=== PATIENT | female | born 1970 | race Caucasian/White ===

== ENCOUNTER 2017-07-26 07:52 | Emergency (ER) | payer OTHER ==
[~2017-07-26] VITALS: Ht 170.2 cm; Wt 65.8 kg
[~2017-07-26 07:52] MED LIST: BUPR300T52 PO; DICL50TA9 PO
[2017-07-26] MEDS ORDERED: DEXAMETHASONE SOD PHOSPHATE 4 MG INJ IM ONE (08:15)
--- NOTE | 2017-07-26 08:25 | NUR ---
pt swabbed for rapid strep collection, specimen taken to lab.
[2017-07-26] MEDS ORDERED: DEXAMETHASONE SOD PHOSPHATE 4 MG INJ ONE (08:34)
--- NOTE | 2017-07-26 09:22 | NUR ---
AWAITING TEST RESULTS. PT IS AWAKE AND ALERT WITH NO NEW COMPLAINTS.
--- NOTE | 2017-07-26 10:07 | NUR ---
DC, RX (INCLUDING PRECAUTIONS) GIVEN AND EXPLAINED TO PATIENT WHO STATES SHE UNDERSTANDS ALL INSTRUCTIONS.
== END 2017-07-26 10:10 | disposition home or self-care (01) ==
LOC: ER 07:52
DX: J02.8 Acute pharyngitis due to other specified organisms (principal); B97.89 Other viral agents as the cause of diseases classified elsewhere; Z88.2 Allergy status to sulfonamides; G43.909 Migraine, unspecified, not intractable, without status migrainosus
CPT/HCPCS: 36415; 70360; 86403; 87070; 96372; 99285; A4663; J1100

== ENCOUNTER 2019-05-15 11:26 | Emergency (ER) | payer OTHER ==
[~2019-05-15] VITALS: Ht 170.2 cm; Wt 61.2 kg
--- NOTE | 2019-05-15 11:35 | NUR ---
AOx4, c/o L ear aches, admits to swimming couple weeks ago with recent URI symptoms. Patient also has been using earplugs for sleep 2/2 her spouse's loud snoring, denies trauma to affected site.
--- NOTE | 2019-05-15 11:45 | NUR ---
Patient discharged to home in stable conditon & brisk steady gait. Written and verbal after care instructions given to patient. Patient verbalizes understanding of instructions.
== END 2019-05-15 11:47 | disposition home or self-care (01) ==
LOC: ER 11:26
DX: H66.92 Otitis media, unspecified, left ear (principal); J06.9 Acute upper respiratory infection, unspecified; F32.9 Major depressive disorder, single episode, unspecified; Z88.2 Allergy status to sulfonamides; Z79.899 Other long term (current) drug therapy
CPT/HCPCS: A4663

== ENCOUNTER 2020-08-28 02:56 | Emergency (ER) | payer OTHER ==
[~2020-08-28] VITALS: Ht 170.2 cm; Wt 75.7 kg
--- NOTE | 2020-08-28 03:13 | NUR ---
at bedside for assessment
[2020-08-28] MEDS ORDERED: diphenhydrAMINE 50 MG/1 ML VIAL IV ONE (03:15)
[2020-08-28] MEDS ORDERED: ONDANSETRON 4 MG/2 ML VIAL IV ONE (03:15)
[2020-08-28] MEDS ORDERED: MORPHINE SULFATE 4 MG/1 ML DISP.SYRIN IV ONE (03:15)
[2020-08-28] MEDS ORDERED: MORPHINE SULFATE 4 MG/1 ML DISP.SYRIN ONE (03:20)
[2020-08-28] MEDS ORDERED: ONDANSETRON 4 MG/2 ML VIAL ONE (03:20)
[2020-08-28] MEDS ORDERED: diphenhydrAMINE 50 MG/1 ML VIAL ONE (03:20)
[2020-08-28 03:21] LABS: *BILIRUBIN,URIN NEGATIVE (NEGATIVE); *CLARITY,URINE CLEAR (CLEAR); *COLOR,URINE YELLOW (YELLOW); *KETONES,URINE NEGATIVE (NEGATIVE); *UROBILINOGEN,URINE 0.2 E.U./dl (NORMAL); LEUKOCYTE ESTERASE ,URINE NEGATIVE (NEGATIVE); NITRITE, URINE NEGATIVE (NEGATIVE); UGLUCOSE NEGATIVE (NEGATIVE)
[2020-08-28] MEDS ORDERED: MORPHINE SULFATE 2 MG/1 ML DISP.SYRIN ONE (03:21)
[2020-08-28 03:22] LABS: *BLOOD, URINE NEGATIVE (NEGATIVE)
[2020-08-28] MEDS ORDERED: BUPR-52 PO (03:22)
[2020-08-28] MEDS ORDERED: DOCU100C36 PO (03:22)
[2020-08-28] MEDS ORDERED: EXEN2PEN SQ (03:22)
[2020-08-28] MEDS ORDERED: ALBU6.7H9 INH (03:22)
[2020-08-28] MEDS ORDERED: GABA300C PO (03:22)
[2020-08-28 03:23] LABS: *URINE HCG, QUAL NEGATIVE (NEGATIVE)
[2020-08-28] MEDS ORDERED: LORA-259 PO (03:23)
[2020-08-28] MEDS ORDERED: KETO10TA2 PO (03:23)
[2020-08-28] MEDS ORDERED: METH-406 PO (03:23)
[2020-08-28] MEDS ORDERED: ONDA4TAB11 PO (03:23)
[2020-08-28] MEDS ORDERED: LIDO30CR TP (03:23)
[2020-08-28] MEDS ORDERED: LEVO500T90 PO (03:23)
[2020-08-28] MEDS ORDERED: OXYC5TAB3 PO (03:23)
[2020-08-28] MEDS ORDERED: NORE1TAB93 PO (03:23)
[2020-08-28 03:44] LABS: BASOPHILS % (AUTO) 0.6 % (0.0-2.0); EOSINOPHILS # (AUTO) 0.2 K/uL (0.0-0.7); EOSINOPHILS % (AUTO) 2.5 % (0.0-7.0); HEMOGLOBIN 12.7 g/dL (10.9-14.3); LYMPHOCYTES # (AUTO) 1.6 K/uL (20.0-40.0); MEAN CORPUSCULAR HGB CONC 33 g/dL (32.3-35.6); MEAN CORPUSCULAR VOLUME 89.8 fL (75.5-95.3); MONOCYTES # (AUTO) 0.6 K/uL (2.0-10.0); MONOCYTES % (AUTO) 8.3 % (0.0-11.0); NEUTROPHILS # (AUTO) 4.9 K/uL (1.8-8.9); NEUTROPHILS % (AUTO) 66.6 % (38.5-71.5); PLATELET COUNT (AUTO) 377 K/uL (179-408); RED BLOOD CELL COUNT(AUTO) 4.23 MIL/uL (3.63-4.92); WHITE BLOOD COUNT (AUTO) 7.4 K/uL (3.8-11.8)
[2020-08-28 03:45] LABS: CREATININE 0.6 mg/dL (0.6-1.3); POTASSIUM 4.1 mmol/L (3.5-5.1)
[2020-08-28 03:52] LABS: BILIRUBIN,TOTAL 0.2 mg/dL (0.2-1.0)
[2020-08-28 03:53] LABS: BILIRUBIN,DIRECT 0.1 mg/dL (0.0-0.2); TOTAL PROTEIN, SERUM 6.9 g/dL (6.4-8.2)
[2020-08-28] MEDS ORDERED: SWABABLE VALVE TRANSFER SET EA MC ONE (04:23)
[2020-08-28] MEDS ORDERED: IV NORMAL SALINE 250 ML IV ONE (04:23)
[2020-08-28] MEDS ORDERED: IOHEXOL 300MG/ML 100 ML INFUS..BTL ONE (04:23)
--- NOTE | 2020-08-28 06:50 | NUR ---
Patient discharged to home in stable condition. No signs of acute distress noted. Rx given Written and verbal after care instructions given. Patient verbalizes understanding of instructions. Stressed follow up or return to ER for worsening s/s.
[2020-08-28 06:52] VITALS: BP 118/72
== END 2020-08-28 06:50 | disposition home or self-care (01) ==
LOC: ER 03:00
DX: R10.11 Right upper quadrant pain (principal); F32.9 Major depressive disorder, single episode, unspecified; Z79.899 Other long term (current) drug therapy; C78.7 Secondary malignant neoplasm of liver and intrahepatic bile duct; Z85.038 Personal history of other malignant neoplasm of large intestine; G43.909 Migraine, unspecified, not intractable, without status migrainosus
CPT/HCPCS: 36415; 74177; 80048; 80076; 81003; 83690; 84703; 85025; 85610; 96374; 96375; 99285; J1200; J2270 ×2; J2405; Q9967; A4663; J7030; J7050

== ENCOUNTER 2021-06-07 15:26 | Emergency (ER) | payer OTHER ==
[~2021-06-07] VITALS: Ht 170.2 cm; Wt 71.7 kg
[~2021-06-07 15:26] MED LIST changes: +ALBU6.7H9 INH; +BUPR-53 PO; -BUPR300T52 PO; -DICL50TA9 PO; +DOCU100C36 PO; +EXEN2PEN SQ; +GABA300C PO; +KETO10TA2 PO; +LEVO500T90 PO; +LIDO30CR TP; +LORA-259 PO; +METH-406 PO; +NORE1TAB93 PO; +ONDA4TAB11 PO; +OXYC5TAB3 PO
[2021-06-07 16:47] LABS: HEMATOCRIT 42.7 % (31.2-41.9); MEAN CORPUSCULAR HEMOGLOBIN 31.9 uug (24.7-32.8); MEAN CORPUSCULAR VOLUME 94.7 fL (75.5-95.3); PLATELET COUNT (AUTO) 324 K/uL (179-408)
[2021-06-07 16:52] LABS: CARBON DIOXIDE 26 mmol/L (21-32); CHLORIDE 102 mmol/L (98-107); CREATININE 0.7 mg/dL (0.6-1.3); GLUCOSE 98 mg/dL (74-106); POTASSIUM 3.8 mmol/L (3.5-5.1); UREA NITROGEN, BLOOD 10 mg/dL (7-18)
[2021-06-07 16:58] LABS: ALANINE AMINOTRANSFERASE 31 U/L (14-59); ALKALINE PHOSPHATASE 89 U/L (50-136); ASPARTATE AMINOTRANSFERASE 24 U/L (15-37); BILIRUBIN,DIRECT 0.1 mg/dL (0.0-0.2); BILIRUBIN,TOTAL 0.5 mg/dL (0.2-1.0); LIPASE 85 U/L (73-393); TOTAL PROTEIN, SERUM 6.6 g/dL (6.4-8.2)
[2021-06-07] MEDS: MORPHINE SULFATE 2 MG/1 ML DISP.SYRIN IV ONE (17:00)
[2021-06-07] MEDS: ONDANSETRON 4 MG/2 ML VIAL IV ONE (17:00)
[2021-06-07] MEDS: IV NORMAL SALINE 1000 ML BAG IV ONE (17:30)
[2021-06-07] MEDS ORDERED: SWABABLE VALVE TRANSFER SET EA MC ONE (17:57)
[2021-06-07] MEDS ORDERED: IOHEXOL 300MG/ML 100 ML INFUS..BTL ONE (17:57)
[2021-06-07] MEDS ORDERED: IV NORMAL SALINE 250 ML IV ONE (17:57)
--- NOTE | 2021-06-07 19:20 | NUR ---
RECEIVED REPORT FROM JAE ARTEAGA. PT NOTED TO BE IN BED, DENIES ANY PAIN OR DISCOMFORT, AT BEDSIDE.
--- NOTE | 2021-06-07 20:48 | NUR ---
Patient discharged to home in stable condition. A/O x4, denies pain, no n/v/d. Written and verbal after care instructions given. Patient verbalizes understanding of instructions. Stressed follow up or return to ER for worsening s/s. Accompanied by .
[2021-06-07 20:59] VITALS: BP 110/62
== END 2021-06-07 20:50 | disposition home or self-care (01) ==
LOC: ER 15:26
DX: R10.84 Generalized abdominal pain (principal); C79.9 Secondary malignant neoplasm of unspecified site; Z90.49 Acquired absence of other specified parts of digestive tract; Z85.038 Personal history of other malignant neoplasm of large intestine; Z88.2 Allergy status to sulfonamides; Z79.899 Other long term (current) drug therapy
CPT/HCPCS: 74176; 74177; 80048; 80076; 83690; 84702; 85025; 99285; Q9967; 36415; A4663; J7050

== ENCOUNTER 2021-10-02 09:26 | Emergency (ER) | payer OTHER ==
[~2021-10-02] VITALS: Ht 170.2 cm; Wt 71.7 kg
[2021-10-02] MEDS ORDERED: IOHEXOL 350 100 ML INFUS..BTL ONE (09:58)
[2021-10-02] MEDS ORDERED: IV NORMAL SALINE 250 ML IV ONE (09:58)
[2021-10-02] MEDS ORDERED: SWABABLE VALVE TRANSFER SET EA MC ONE (09:58)
[2021-10-02 09:59] LABS: HEMATOCRIT 42.7 % (31.2-41.9); MEAN CORPUSCULAR HEMOGLOBIN 28.9 uug (24.7-32.8); MEAN CORPUSCULAR VOLUME 86.3 fL (75.5-95.3); PLATELET COUNT (AUTO) 246 K/uL (179-408)
[2021-10-02] MEDS ORDERED: BUPR150T5 PO (10:03)
[2021-10-02 10:05] LABS: CREATININE 0.7 mg/dL (0.6-1.3)
[2021-10-02 10:11] LABS: BILIRUBIN,DIRECT 0.2 mg/dL (0.0-0.2); BILIRUBIN,TOTAL 0.6 mg/dL (0.2-1.0); TOTAL PROTEIN, SERUM 7.2 g/dL (6.4-8.2)
[2021-10-02 11:26] LABS: *BILIRUBIN,URIN NEGATIVE (NEGATIVE); *BLOOD, URINE TRACE (NEGATIVE); *CLARITY,URINE CLOUDY (CLEAR); *COLOR,URINE YELLOW (YELLOW); *KETONES,URINE NEGATIVE (NEGATIVE); *UROBILINOGEN,URINE 0.2 E.U./dl (NORMAL); LEUKOCYTE ESTERASE ,URINE NEGATIVE (NEGATIVE); NITRITE, URINE NEGATIVE (NEGATIVE); PH,URINE 7.5 (5.0-8.0); UGLUCOSE NEGATIVE (NEGATIVE)
[2021-10-02 12:42] VITALS: BP 129/77
--- NOTE | 2021-10-02 12:42 | NUR ---
Patient discharged to home in stable condition. Written and verbal after care instructions given. Patient verbalizes understanding of instructions. Stressed follow up or return to ER for worsening s/s.
[2021-10-02 15:37] LABS: BACTERIA,URINE NONE SEEN /HPF (NONE SEEN); RBC,URINE 0-3 /HPF (0-3); SQUAMOUS EPITHELIAL CELL,UR NONE SEEN /HPF (NONE SEEN); URINE AMORPHOUS PHOSPHATES MODERATE /HPF; WBC,URINE 0-3 /HPF (0-3)
== END 2021-10-02 12:43 | disposition home or self-care (01) ==
LOC: ER 09:26
DX: R10.10 Upper abdominal pain, unspecified (principal); Z85.038 Personal history of other malignant neoplasm of large intestine; Z92.21 Personal history of antineoplastic chemotherapy; Z90.49 Acquired absence of other specified parts of digestive tract; Z88.2 Allergy status to sulfonamides; K76.9 Liver disease, unspecified
CPT/HCPCS: 36415; 71275; 74177; 80048; 80076; 81001; 83605; 83690; 85025; 87040 ×2; 99285; Q9967; A4663; J7050

== ENCOUNTER 2022-06-29 18:02 | Inpatient (IN) | payer OTHER ==
[~2022-06-29] VITALS: Ht 170.2 cm; Wt 74.8 kg
[~2022-06-29 18:02] MED LIST changes: -ALBU6.7H9 INH; -BUPR-53 PO; +BUPR150T5 PO; -EXEN2PEN SQ; -KETO10TA2 PO; -LEVO500T90 PO; -LIDO30CR TP; -LORA-259 PO; -METH-406 PO; -NORE1TAB93 PO; -ONDA4TAB11 PO; -OXYC5TAB3 PO
[2022-06-29] MEDS ORDERED: ONDANSETRON 4 MG/2 ML VIAL IV ONE ×2 (19:15→23:30)
[2022-06-29] MEDS ORDERED: IV NORMAL SALINE 1000 ML BAG IV ONE (19:15)
[2022-06-29] MEDS ORDERED: HYDROMORPHONE 1 MG/1 ML DISP.SYRIN IV ONE ×3 (19:15→23:30)
[2022-06-29] MEDS ORDERED: ONDANSETRON 4 MG/2 ML VIAL ONE ×2 (19:31→23:49)
[2022-06-29] MEDS ORDERED: HYDROMORPHONE 1 MG/1 ML DISP.SYRIN ONE ×3 (19:31→23:49)
[2022-06-29 19:32] LABS: HEMATOCRIT 41.3 % (31.2-41.9); MEAN CORPUSCULAR HEMOGLOBIN 30.6 uug (24.7-32.8); MEAN CORPUSCULAR VOLUME 90.9 fL (75.5-95.3); PLATELET COUNT (AUTO) 279 K/uL (179-408)
--- NOTE | 2022-06-29 19:47 | NUR ---
Patient presents to the ER, C/O abdominal pain/nausea. Patient A/O X 4, seen by the MD #[id number] angio-cath to (LT) AC, blood collected and sent. Patient medicated as per MD orders (see eMAR). Patient transported safely via stretcher to CT. Verbal report given to Foster ROWE.
[2022-06-29 19:48] LABS: BILIRUBIN,DIRECT 0.2 mg/dL (0.0-0.2); BILIRUBIN,TOTAL 0.7 mg/dL (0.2-1.0); CREATININE 0.6 mg/dL (0.6-1.3); POTASSIUM 3.7 mmol/L (3.5-5.1); TOTAL PROTEIN, SERUM 7.1 g/dL (6.4-8.2)
[2022-06-29] MEDS ORDERED: MIRALAX 17 GM POWD.PACK PO ONE (21:30)
[2022-06-29] MEDS ORDERED: MAGNESIUM CITRATE 296 ML BOTTLE PO ONE (21:30)
[2022-06-29] MEDS ORDERED: MIRALAX 17 GM POWD.PACK ONE (22:19)
[2022-06-29] MEDS ORDERED: MINERAL OIL FLEET ENEMA 133 ML BOTTLE RC ONE ×2 (22:23→22:30)
[2022-06-29] MEDS ORDERED: SENNOSIDES 1 TABLET PO ONE (23:30)
[2022-06-30] MEDS ORDERED: ZOLP10TA2 PO (00:24)
[2022-06-30] MEDS ORDERED: MORP15TA PO (00:24)
[2022-06-30] MEDS ORDERED: BUPR300T52 PO (00:24)
[2022-06-30] MEDS ORDERED: APIX5TAB PO (00:24)
[2022-06-30] MEDS ORDERED: LORA-258 PO (00:24)
[2022-06-30] MEDS ORDERED: MORP30TA PO (00:24)
--- NOTE | 2022-06-30 02:04 | NUR ---
Dr. Bishop on panel call with Orlando Cantu NP.
[2022-06-30] MEDS ORDERED: SENNOSIDES 1 TABLET PO PRN (02:45)
[2022-06-30] MEDS ORDERED: ZOLPIDEM 5 MG TABLET PO PRN ×2 (02:45→03:00)
[2022-06-30] MEDS ORDERED: MAGNESIUM HYDROXIDE 30 ML LIQUID UDC PO PRN (02:45)
[2022-06-30] MEDS ORDERED: MORPHINE SULFATE 2 MG/1 ML DISP.SYRIN IV PRN ×2 (02:45→18:45)
[2022-06-30] MEDS ORDERED: LACTULOSE 20 G/30 ML LIQUID UDC PO PRN (02:45)
[2022-06-30] MEDS ORDERED: REMEDY ESSENTIAL ZINC PASTE 113 GM TP PRN (02:45)
[2022-06-30] MEDS ORDERED: FLEET ENEMA 133 ML BOTTLE RC PRN ×2 (02:45→06:46)
[2022-06-30] MEDS ORDERED: DOCUSATE SODIUM 100 MG CAPSULE PO PRN (02:45)
[2022-06-30] MEDS ORDERED: IV NS 1000 ML 1,000 ML IV PRN (02:45)
[2022-06-30] MEDS ORDERED: ACETAMINOPHEN 325 MG TABLET PO PRN (02:45)
--- NOTE | 2022-06-30 03:20 | NUR ---
Received patient from ER via gurney, awake alert and oriented x4, in no acute distress. IV access to Lt AC # 20 intact and patent. Routine admission care rendered, oriented to room, TV, BR and call light. Care plan initiated. Call light placed within easy reach.
[2022-06-30 03:40] VITALS: BP 132/74
[2022-06-30] MEDS: HYDROMORPHONE 1 MG/1 ML DISP.SYRIN IV PRN ×2 (04:58→14:15)
[2022-06-30] MEDS: ONDANSETRON 4 MG/2 ML VIAL IV PRN (05:03)
[2022-06-30 07:44] LABS: HEMATOCRIT 38.8 % (31.2-41.9); MEAN CORPUSCULAR HEMOGLOBIN 31.5 uug (24.7-32.8); MEAN CORPUSCULAR VOLUME 91.1 fL (75.5-95.3); PLATELET COUNT (AUTO) 254 K/uL (179-408)
[2022-06-30] MEDS: PANTOPRAZOLE SODIUM 40 MG VIAL IV SCH (08:11)
[2022-06-30 08:13] LABS: CREATININE 0.7 mg/dL (0.6-1.3); MAGNESIUM 1.9 mg/dL (1.8-2.4); PHOSPHOROUS 3.5 mg/dL (2.5-4.9); POTASSIUM 3.5 mmol/L (3.5-5.1)
[2022-06-30] MEDS: buPROPion XL 150 MG TAB.SR.24H PO SCH (08:16)
[2022-06-30] MEDS: GABAPENTIN 300 MG CAPSULE PO SCH ×2 (08:16→16:05)
[2022-06-30] MEDS: APIXABAN 5 MG TABLET PO SCH ×2 (08:17→20:37)
[2022-06-30 11:58] VITALS: BP 132/77
[2022-06-30 16:36] VITALS: BP 120/69
[2022-06-30] MEDS: METRONIDAZOLE 500 MG/NS 100ML 500 MG in PREMIXED 1 EACH IV SCH ×2 (16:46→16:50)
[2022-06-30] MEDS: CIPROFLOXACIN IV 400 MG in PREMIXED 1 EACH IV SCH (17:24)
[2022-06-30] MEDS ORDERED: LORAZEPAM 0.5 MG TABLET PO PRN (18:45)
[2022-06-30] MEDS ORDERED: MORPHINE SULFATE 4 MG/1 ML DISP.SYRIN IV PRN (18:45)
[2022-06-30] MEDS: MORPHINE SULFATE IR 30 MG TABLET PO PRN ×2 (18:51→18:52)
[2022-06-30] MEDS: MORPHINE SULFATE SR 15 MG TABLET.SA PO SCH (18:54)
[2022-06-30 20:22] VITALS: BP 131/72
[2022-06-30] MEDS: DOCUSATE SODIUM 100 MG CAPSULE PO SCH (20:33)
[2022-06-30] MEDS ORDERED: CIPROFLOXACIN IV 200 MG in PREMIXED 1 EACH IV SCH (21:00)
--- NOTE | 2022-07-01 00:49 | NUR ---
In no acute distress. No signs or symptoms of pain or SOB. No adverse reaction noted from IV antibiotic. Nursing needs anticipated and met. Safety measure maintained.
[2022-07-01 04:22] VITALS: BP 126/78
[2022-07-01] MEDS: CIPROFLOXACIN IV 400 MG in PREMIXED 1 EACH IV SCH ×2 (05:05→17:14)
--- NOTE | 2022-07-01 06:53 | NUR ---
IV IN LFA BECAME INFILTRATED. APPLIED A WARM COMPRESS TO SITE AND SWITCHED IV SITE TO RIGHT HAND 20G. SITE PATENT AND INTACT. NO SWELLING OR REDNESS NOTED AT THIS TIME. WILL CONTINUE TO MONITOR.
[2022-07-01 07:09] LABS: MEAN CORPUSCULAR HEMOGLOBIN 31.3 uug (24.7-32.8); MEAN CORPUSCULAR VOLUME 91.1 fL (75.5-95.3); PLATELET COUNT (AUTO) 228 K/uL (179-408)
[2022-07-01 07:43] LABS: CREATININE 0.6 mg/dL (0.6-1.3); PHOSPHOROUS 2.8 mg/dL (2.5-4.9); POTASSIUM 3.6 mmol/L (3.5-5.1)
[2022-07-01] MEDS: MORPHINE SULFATE SR 15 MG TABLET.SA PO SCH ×2 (08:56→21:15)
[2022-07-01] MEDS: buPROPion XL 150 MG TAB.SR.24H PO SCH (08:56)
[2022-07-01] MEDS: APIXABAN 5 MG TABLET PO SCH ×2 (09:01→21:17)
[2022-07-01] MEDS: GABAPENTIN 300 MG CAPSULE PO SCH ×2 (09:05→16:46)
[2022-07-01] MEDS: PANTOPRAZOLE SODIUM 40 MG VIAL IV SCH (09:17)
[2022-07-01] MEDS: HYDROMORPHONE 1 MG/1 ML DISP.SYRIN IV PRN (10:33)
[2022-07-01 12:00] VITALS: BP 109/66
[2022-07-01 16:00] VITALS: BP 108/71
--- NOTE | 2022-07-01 18:05 | NUR ---
Patient is comfortable. She is alert and oriented x4, verbally responsive. Breathing normal on room air with apparent distress noted. Chief complaint is abdominal pain. She is able to walk to bathroom. Very pleasant and cooperative. Hydromorphine given for pain, patient tolerated well with effective results. Milk of magnesia given instead of citrate of magnesium due to back order. Patient requested for Senokot. Medication was given and she tolerated well. Patient is comfortably resting in bed. Sn will continue to monitor.
[2022-07-01 20:45] VITALS: BP 111/71
[2022-07-01] MEDS: DOCUSATE SODIUM 100 MG CAPSULE PO SCH (21:15)
[2022-07-02] MEDS: CIPROFLOXACIN IV 400 MG in PREMIXED 1 EACH IV SCH (05:08)
[2022-07-02] MEDS: ONDANSETRON 4 MG/2 ML VIAL IV PRN (05:14)
[2022-07-02 06:41] LABS: HEMATOCRIT 34.5 % (31.2-41.9); MEAN CORPUSCULAR HEMOGLOBIN 31.2 uug (24.7-32.8); MEAN CORPUSCULAR VOLUME 91.4 fL (75.5-95.3); PLATELET COUNT (AUTO) 222 K/uL (179-408)
[2022-07-02 06:45] VITALS: BP 119/79
[2022-07-02 07:05] LABS: CREATININE 0.7 mg/dL (0.6-1.3); PHOSPHOROUS 3.8 mg/dL (2.5-4.9); POTASSIUM 3.7 mmol/L (3.5-5.1)
[2022-07-02] MEDS: PANTOPRAZOLE SODIUM 40 MG VIAL IV SCH (08:28)
[2022-07-02] MEDS: GABAPENTIN 300 MG CAPSULE PO SCH (08:29)
[2022-07-02] MEDS: MORPHINE SULFATE SR 15 MG TABLET.SA PO SCH (08:29)
[2022-07-02] MEDS: APIXABAN 5 MG TABLET PO SCH (08:32)
[2022-07-02] MEDS: buPROPion XL 150 MG TAB.SR.24H PO SCH (09:15)
[2022-07-02 11:33] VITALS: BP 109/56
--- NOTE | 2022-07-02 13:00 | NUR ---
Pt. discharged home and picked up by her . Alert and oriented x4. Noted to be stable upon the discharge. IV line removed. All belonging returned to the pt.
[2022-07-02] MEDS ORDERED: CIPR-262 PO (13:59)
[2022-07-03] MEDS ORDERED: PANTOPRAZOLE SODIUM 40 MG TABLET.DR PO SCH (07:00)
== END 2022-07-02 13:00 | disposition home or self-care (01) | DRG 372 ==
LOC: ER 18:02 → MEDSURG3 06-30 02:37
PROVIDERS: ADMIT Registered Nurse; ATTEND Nurse Practitioner Acute Care
DX: A04.9 Bacterial intestinal infection, unspecified (principal); C78.7 Secondary malignant neoplasm of liver and intrahepatic bile duct; C78.02 Secondary malignant neoplasm of left lung; C78.01 Secondary malignant neoplasm of right lung; C77.9 Secondary and unspecified malignant neoplasm of lymph node, unspecified; C79.63 Secondary malignant neoplasm of bilateral ovaries; C78.6 Secondary malignant neoplasm of retroperitoneum and peritoneum; C18.9 Malignant neoplasm of colon, unspecified; K59.03 Drug induced constipation; G89.3 Neoplasm related pain (acute) (chronic); G89.4 Chronic pain syndrome; Z79.01 Long term (current) use of anticoagulants; Z79.891 Long term (current) use of opiate analgesic; T40.605A Adverse effect of unspecified narcotics, initial encounter; Y92.009 Unspecified place in unspecified non-institutional (private) residence as the place of occurrence of the external cause; Z90.49 Acquired absence of other specified parts of digestive tract; Z90.722 Acquired absence of ovaries, bilateral; Z79.899 Other long term (current) drug therapy; Z80.0 Family history of malignant neoplasm of digestive organs
CPT/HCPCS: 36415; 71250; 83605; 83690; 83735; 84100; 85025; A4663; C9113; G0378; J0744; J1170; J2270; J2405; J3490; J7040

== ENCOUNTER 2022-07-30 12:02 | Emergency (ER) | payer MEDICARE, OTHER ==
[~2022-07-30] VITALS: Ht 170.2 cm; Wt 72.6 kg
[~2022-07-30 12:02] MED LIST changes: +APIX5TAB PO; -BUPR150T5 PO; +BUPR300T52 PO; +CIPR-262 PO; +LORA-258 PO; +MORP15TA PO; +MORP30TA PO; +ZOLP10TA2 PO
[2022-07-30] MEDS ORDERED: IV NORMAL SALINE 1000 ML BAG IV ONE (12:30)
[2022-07-30] MEDS ORDERED: ONDANSETRON 4 MG/2 ML VIAL IV ONE (12:30)
[2022-07-30] MEDS ORDERED: HYDROMORPHONE 1 MG/1 ML DISP.SYRIN IV ONE ×2 (12:30→14:15)
[2022-07-30] MEDS ORDERED: ONDANSETRON 4 MG/2 ML VIAL ONE (12:32)
[2022-07-30] MEDS ORDERED: HYDROMORPHONE 1 MG/1 ML DISP.SYRIN ONE ×2 (12:33→14:24)
[2022-07-30 12:43] LABS: HEMATOCRIT 41.9 % (31.2-41.9); MEAN CORPUSCULAR HEMOGLOBIN 30.7 uug (24.7-32.8); MEAN CORPUSCULAR VOLUME 91.4 fL (75.5-95.3); PLATELET COUNT (AUTO) 236 K/uL (179-408)
[2022-07-30 12:54] LABS: MAGNESIUM 2.1 mg/dL (1.8-2.4); PHOSPHOROUS 4.3 mg/dL (2.5-4.9)
[2022-07-30 13:04] LABS: BILIRUBIN,DIRECT 0.1 mg/dL (0.0-0.2); BILIRUBIN,TOTAL 0.4 mg/dL (0.2-1.0); CREATININE 0.7 mg/dL (0.6-1.3); POTASSIUM 3.7 mmol/L (3.5-5.1)
[2022-07-30] MEDS ORDERED: MIRALAX 17 GM POWD.PACK PO ONE (13:45)
[2022-07-30] MEDS ORDERED: SENNOSIDES/DOCUSATE SODIUM TABLET PO ONE (13:45)
[2022-07-30] MEDS ORDERED: SENNOSIDES/DOCUSATE SODIUM TABLET PO SCH (13:45)
[2022-07-30] MEDS ORDERED: MIRALAX 17 GM POWD.PACK ONE (14:24)
[2022-07-30 14:26] LABS: *BILIRUBIN,URIN NEGATIVE (NEGATIVE); *CLARITY,URINE CLEAR (CLEAR); *COLOR,URINE YELLOW (YELLOW); *KETONES,URINE NEGATIVE (NEGATIVE); *UROBILINOGEN,URINE 0.2 E.U./dl (NORMAL); LEUKOCYTE ESTERASE ,URINE NEGATIVE (NEGATIVE); NITRITE, URINE NEGATIVE (NEGATIVE); PH,URINE 5.5 (5.0-8.0); UGLUCOSE NEGATIVE (NEGATIVE)
[2022-07-30 14:27] LABS: *BLOOD, URINE TRACE (NEGATIVE); *URINE HCG, QUAL NEGATIVE (NEGATIVE)
[2022-07-30 14:58] LABS: BACTERIA,URINE NONE SEEN /HPF (NONE SEEN); RBC,URINE 0-3 /HPF (0-3); SQUAMOUS EPITHELIAL CELL,UR FEW /HPF (NONE SEEN); WBC,URINE 0-3 /HPF (0-3)
[2022-07-30] MEDS ORDERED: DOCU-141 PO (15:43)
[2022-07-30] MEDS ORDERED: SENN-261 PO (15:43)
[2022-07-30] MEDS ORDERED: ONDA4TAB11 PO (15:43)
[2022-07-30] MEDS ORDERED: POLY17PO4 PO (15:43)
[2022-07-30 15:59] VITALS: BP 139/80
== END 2022-07-30 15:49 | disposition home or self-care (01) ==
LOC: ER 12:02
DX: K59.00 Constipation, unspecified (principal); R10.9 Unspecified abdominal pain; C18.9 Malignant neoplasm of colon, unspecified; C78.7 Secondary malignant neoplasm of liver and intrahepatic bile duct; Z92.21 Personal history of antineoplastic chemotherapy; Z90.49 Acquired absence of other specified parts of digestive tract; Z88.1 Allergy status to other antibiotic agents; Z88.2 Allergy status to sulfonamides
CPT/HCPCS: 99284; 74176; 96374; 96361; 96375; 80076; 80048; 81001; 84703; 83690; 83735; 84100; 84550; 85025; 36415; 96376; J2405; J1170 ×2; J7040; A4663

== ENCOUNTER 2023-02-09 13:37 | Emergency (ER) | payer MEDICARE, OTHER ==
[~2023-02-09] VITALS: Ht 167.6 cm; Wt 74.8 kg
[~2023-02-09 13:37] MED LIST changes: +DOCU-141 PO; +ONDA4TAB11 PO; +POLY17PO4 PO; +SENN-261 PO
--- NOTE | 2023-02-09 14:11 | NUR ---
Patient to room #5, assisted into gown, informed of plan of care, awaiting MD exam. Blood has been collected. No s/s of any distress noted.
[2023-02-09 14:27] LABS: MEAN CORPUSCULAR HEMOGLOBIN 32.5 uug (24.7-32.8); MEAN CORPUSCULAR VOLUME 99.9 fL (75.5-95.3); PLATELET COUNT (AUTO) 273 K/uL (179-408)
[2023-02-09 14:40] LABS: CREATININE 0.6 mg/dL (0.6-1.3); POTASSIUM 3.9 mmol/L (3.5-5.1)
[2023-02-09 14:48] LABS: BILIRUBIN,DIRECT 0.1 mg/dL (0.0-0.2); BILIRUBIN,TOTAL 0.3 mg/dL (0.2-1.0); TOTAL PROTEIN, SERUM 6.9 g/dL (6.4-8.2)
--- NOTE | 2023-02-09 15:10 | NUR ---
Patient continues to rest and await for lab results.
[2023-02-09] MEDS ORDERED: MORPHINE SULFATE 4 MG/1 ML DISP.SYRIN IV ONE ×2 (15:15→16:30)
[2023-02-09] MEDS ORDERED: ONDANSETRON 4 MG/2 ML VIAL IV ONE (15:15)
[2023-02-09] MEDS ORDERED: SWABABLE VALVE TRANSFER SET EA MC ONE (15:16)
[2023-02-09] MEDS ORDERED: IOHEXOL 300MG/ML 100 ML INFUS..BTL ONE (15:16)
[2023-02-09] MEDS ORDERED: IV NORMAL SALINE 250 ML IV ONE (15:16)
--- NOTE | 2023-02-09 15:18 | NUR ---
PROVIDER AT BEDSIDE FOR ULTRASOUND GUIDED MID LINE INSERTION. PATIENT WITH FAMILY AT BEDSIDE UPDATED ON PLAN OF CARE. ONCE LINE IS ESTABLISHED WILL MEDICATE PER ORDER.
[2023-02-09] MEDS ORDERED: MORPHINE SULFATE 4 MG/1 ML DISP.SYRIN ONE ×2 (15:37→16:31)
[2023-02-09] MEDS ORDERED: ONDANSETRON 4 MG/2 ML VIAL ONE (15:37)
--- NOTE | 2023-02-09 15:42 | NUR ---
PATIENT HAS BEEN MEDICATED PER ORDER.RUE MID-LINE INSERTED BY .
[2023-02-09 16:11] LABS: *BILIRUBIN,URIN NEGATIVE (NEGATIVE); *CLARITY,URINE CLEAR (CLEAR); *COLOR,URINE YELLOW (YELLOW); *KETONES,URINE NEGATIVE (NEGATIVE); *UROBILINOGEN,URINE 0.2 E.U./dl (NORMAL); LEUKOCYTE ESTERASE ,URINE NEGATIVE (NEGATIVE); NITRITE, URINE NEGATIVE (NEGATIVE); UGLUCOSE NEGATIVE (NEGATIVE)
[2023-02-09 16:16] LABS: *BLOOD, URINE NEGATIVE (NEGATIVE)
--- NOTE | 2023-02-09 16:58 | NUR ---
MID-LINE REMOVED BY ER PROVIDER, PATIENT REMAINS STABLE FOR DISCHARGE HOME WITH FAMILY.
--- NOTE | 2023-02-09 17:19 | NUR ---
ACI GIVEN AT THIS TIME.
[2023-02-09 17:20] VITALS: BP 124/68; O2SAT 99
== END 2023-02-09 17:21 | disposition home or self-care (01) ==
LOC: ER 13:37
DX: R10.12 Left upper quadrant pain (principal); C18.9 Malignant neoplasm of colon, unspecified; Z88.2 Allergy status to sulfonamides; Z88.8 Allergy status to other drugs, medicaments and biological substances; Z79.2 Long term (current) use of antibiotics; Z79.899 Other long term (current) drug therapy
CPT/HCPCS: 99285; 74177; 96374; 96375; 80076; 80048; 81003; 83690; 85025; 36415; 96376; 36410; J2405; Q9967; J2270 ×2; A4663

== ENCOUNTER 2025-02-04 16:44 | Emergency (ER) | payer MEDICARE, OTHER ==
[~2025-02-04] VITALS: Ht 170.2 cm; Wt 71.7 kg
[2025-02-04] MEDS ORDERED: LIDOCAINE HCL 2% 20 ML VIAL ONE (17:06)
[2025-02-04] MEDS ORDERED: LIDOCAINE 2%-EPI 1:100,000 20 ML VIAL ONE (17:07)
[2025-02-04] MEDS: LIDOCAINE 2%-EPI 1:100,000 20 ML VIAL IJ ONE (17:36)
[2025-02-04] MEDS ORDERED: NEOMY/BACITRA/POLYMYXIN B OINT UD PACKET TP ONE (17:48)
[2025-02-04] MEDS: NEOMY/BACITRA/POLYMYXIN B OINT UD PACKET TP ONE (18:02)
[2025-02-04 18:32] VITALS: BP 122/83; TEMP 97.7; O2SAT 97
== END 2025-02-04 18:33 | disposition home or self-care (01) ==
LOC: ER 16:44
DX: T83.022A Displacement of nephrostomy catheter, initial encounter (principal); R10.9 Unspecified abdominal pain; Z79.01 Long term (current) use of anticoagulants; Z79.899 Other long term (current) drug therapy; Z85.038 Personal history of other malignant neoplasm of large intestine; Z88.1 Allergy status to other antibiotic agents; Z88.2 Allergy status to sulfonamides; Z88.7 Allergy status to serum and vaccine; Z90.49 Acquired absence of other specified parts of digestive tract; Z87.09 Personal history of other diseases of the respiratory system; Z87.19 Personal history of other diseases of the digestive system; Z90.722 Acquired absence of ovaries, bilateral; Y84.8 Other medical procedures as the cause of abnormal reaction of the patient, or of later complication, without mention of misadventure at the time of the procedure; Y92.89 Other specified places as the place of occurrence of the external cause
CPT/HCPCS: 74018; A4606; A4663; J3490